=== PATIENT | male | born 1985 | race Two or more races ===

== ENCOUNTER 2017-07-09 19:21 | Emergency (ER) | payer SELFPAY ==
[2017-07-09] MEDS ORDERED: DIPH/PERTUSS(ACELL)/TETANUS VAC/PF 0.5 ML SYR (>=10YO) IM ONE (20:15)
[2017-07-09] MEDS ORDERED: CLINDAMYCIN HCL 150 MG CAPSULE PO ONE (20:15)
--- NOTE | 2017-07-09 20:19 | ER Document Report ---
HPI - HPI Patient complains to provider of: Left wrist puncture wound Onset: Yesterday Onset/Duration: Persistent Quality of pain: Achy Pain Level: 5 Context: Patient states that he went into a garden shed and a knife fell from a shelf puncturing his left wrist. Patient complains of numbness to the dorsal aspect of his left hand and complains of left hand and wrist pain with swelling. Patient without any fever. Patient is concerned that a piece of his tendon is exposed in the wound. Associated Symptoms: Other - Left wrist and hand pain. denies: Fever Exacerbated by: Movement Relieved by: Denies Similar symptoms previously: No Recently seen / treated by doctor: No - ROS ROS below otherwise negative: Yes Systems Reviewed and Negative: Yes All other systems reviewed and negative - CONSTITUTIONAL Constitutional: DENIES: Fever - NEURO Neurology: DENIES: Weakness - MUSCULOSKELETAL Musculoskeletal: REPORTS: Extremity pain, Swelling - DERM Skin Color: Normal Skin Problems: Laceration, Puncture Wound Past Medical History - General Information source: Patient - Social History Smoking Status: Never Smoker Frequency of alcohol use: Occasional Drug Abuse: None Occupation: [employer] Family History: Reviewed & Not Pertinent Pulmonary Medical History: Reports: Hx Asthma Surgical Hx: Negative Vertical Provider Document - CONSTITUTIONAL Agree With Documented VS: Yes Exam Limitations: No Limitations General Appearance: WD/WN, No Apparent Distress - INFECTION CONTROL TRAVEL OUTSIDE OF THE [place] IN LAST 30 DAYS: No - HEENT HEENT: Atraumatic, Normocephalic - NECK Neck: Normal Inspection - RESPIRATORY Respiratory: Breath Sounds Normal, No Respiratory Distress - CARDIOVASCULAR Pulses: Normal: Radial - MUSCULOSKELETAL/EXTREMETIES Musculoskeletal/Extremeties: MAEW, FROM, Tender - Right wrist tenderness, Edema - 1+ edema to left hand and wrist area Notes: Patient with full range of motion to all digits of left hand - NEURO Level of Consciousness: Awake, Alert, Appropriate Motor/Sensory: No Motor Deficit. negative: No Sensory Deficit - Patient with decreased light sensation to dorsal aspect of left hand - DERM Integumentary: Warm, Dry, Laceration - Puncture wound to medial aspect of left wrist with what appears to possibly be a piece of tendon pain from wound Course - Re-evaluation Re-evalutation: 07/09/17 20:[address] Hewitt, Dr. Hewitt to bedside for examination. Recommends x-ray , updated tetanus, covering with antibiotics in consultation with orthopedics. Consulted with Dr. Coelho regarding patient presentation, agrees to see patient in the office first thing in the morning. 07/09/17 20:25 X-ray reviewed, no obvious foreign body noted on x-ray - Vital Signs Vital signs: Temp Pulse Resp BP Pulse Ox 98.6 F 82 18 126/58 H 97 07/09/17 19:33 07/09/17 19:33 07/09/17 19:33 07/09/17 19:33 07/09/17 19:33 - Diagnostic Test Radiology reviewed: Pending, Image reviewed Discharge - Discharge Clinical Impression: Puncture wound of wrist Qualifiers: Encounter type: initial encounter Laterality: left Qualified Code(s): S61.532A - Puncture wound without foreign body of left wrist, initial encounter Hand swelling Qualifiers: Laterality: left Qualified Code(s): M79.89 - Other specified soft tissue disorders Condition: Stable Disposition: HOME, SELF-CARE Instructions: Clindamycin ([facility]), Prophylactic Antibiotic ([facility]), Puncture Wound ([facility]), Soap Cleansing ([facility]), Tetanus Immunization Given ([facility]) Additional Instructions: Return immediately for any new or worsening symptoms Followup with your primary care provider, call tomorrow to make a followup appointment Follow-up with Dr. Coelho in the office tomorrow for repeat examination, call first thing in the morning for an appointment time. Let office staff know he was consulted and agreed to see you tomorrow morning first thing. Prescriptions: Clindamycin HCl [Cleocin Hcl] 300 mg PO QID #28 capsule Naproxen [Naprosyn 250 Nmg Tablet] 1 tab PO BID #14 tablet Forms: Return to Work Referrals: RAY COELHO MD [ACTIVE STAFF] - Follow up tomorrow
[2017-07-09] MEDS ORDERED: HYDROCODONE/ACETAMINOPHEN 5-325 MG (6 TAB/ER DISP) PO PRN (20:30)
--- NOTE | 2017-07-09 20:34 | RADIOLOGY REPORT (SQ) ---
EXAM DESCRIPTION: WRIST LEFT 3 VIEWS COMPLETED DATE/TIME: 07/09/2017 8:26 pm REASON FOR STUDY: PW to left wrist COMPARISON: None. NUMBER OF VIEWS: Three views. TECHNIQUE: AP, lateral, and oblique radiographic images acquired of the left wrist. LIMITATIONS: None. FINDINGS: MINERALIZATION: Normal. BONES: No acute fracture or dislocation. No worrisome bone lesions. Normal alignment. SOFT TISSUES: No soft tissue swelling. No foreign body. OTHER: No other significant finding. IMPRESSION: NEGATIVE STUDY OF THE LEFT WRIST. NO RADIOGRAPHIC EVIDENCE OF ACUTE INJURY. TECHNICAL DOCUMENTATION: JOB ID: [id number] [employer]- All Rights Reserved Reading location - IP/workstation name: [email or web address]
[2017-07-09 21:14] VITALS: BP 114/74
== END 2017-07-09 21:14 | disposition home or self-care (01) ==
LOC: ER 19:21
DX: S61.532A Puncture wound without foreign body of left wrist, initial encounter (principal); M79.89 Other specified soft tissue disorders; W26.0XXA Contact with knife, initial encounter; Y93.89 Activity, other specified; R20.0 Anesthesia of skin; M25.532 Pain in left wrist; M79.642 Pain in left hand; J45.909 Unspecified asthma, uncomplicated; Z23 Encounter for immunization
CPT/HCPCS: 90471; 90715; 99283